=== PATIENT | male | born 1990 | race Caucasian/White ===

== ENCOUNTER 2017-03-03 05:12 | Outpatient (CLI) | payer OTHER | END 2017-03-03 05:13 | disposition home or self-care (01) | LOC: LAB 05:12 | DX: Z01.89 Encounter for other specified special examinations (principal) | CPT/HCPCS: 36415 ==

== ENCOUNTER 2023-07-27 11:42 | Outpatient (CLI) | payer BC ==
[2023-07-27 20:16] LABS: CHLAMYDIA TRACHOMATIS DNA NEGATIVE (NEGATIVE); NEISSERIA GONORRHOEAE DNA NEGATIVE (NEGATIVE); TRICHOMONAS VAGINALIS DNA NEGATIVE (NEGATIVE)
[2023-07-28 02:08] LABS: RPR Non Reactive (Non Reactive)
[2023-07-28 03:09] LABS: HIV SCREEN 4TH GENERATION Non Reactive (Non Reactive)
[2023-07-28 05:10] LABS: HCV AB Non Reactive (Non Reactive)
[2023-07-28 07:08] LABS: HSV 2 IGG TYPE SPEC <0.91 index (0.00-0.90)
== END 2023-07-27 11:43 | disposition home or self-care (01) ==
LOC: LAB.S 11:42
PROVIDERS: ATTEND Registered Nurse
DX: Z20.2 Contact with and (suspected) exposure to infections with a predominantly sexual mode of transmission (principal)
CPT/HCPCS: 36415; 86592; 86695; 86696; 86803; 87389; 87491; 87591; 87661